=== PATIENT | female | born 1995 | race Caucasian/White ===

== ENCOUNTER 2019-01-02 14:22 | Emergency (ER) | payer MEDICAID ==
[2019-01-02] MEDS ORDERED: ONDANSETRON HCL INJ/PF 4 MG/2 ML SDV IV ONE (14:39)
[2019-01-02] MEDS ORDERED: RINGERS SOLUTION,LACTATED 1,000 ML IV ONE (14:39)
--- NOTE | 2019-01-02 14:42 | ER Document Report ---
ED Medical Screen (RME) - General Chief Complaint: Vomiting Stated Complaint: VOMITING Notes: Patient is otherwise healthy 23-year-old female presents to the emergency department for multiple episodes of vomiting. Patient states initially she thought it was something she ate. States she had multiple episodes of vomiting days ago. States that again today she continues with vomiting. States she is unable to keep anything down, has been sweating a lot, and uncontrollably shaking. Patient is denying any history of diabetes for herself but does state that her mother has diabetes. Patient denies any diarrhea or actual abdominal pain. States intermittent cramping feeling in her belly she states is "from the muscles because I keep vomiting." GENERAL: Alert, pale and diaphoretic ABDOMEN: Soft, non-tender. Non-distended. Bowel sounds present in all 4 quadra nts. I have greeted and performed a rapid initial assessment of this patient. A comprehensive ED assessment and evaluation of the patient, analysis of test results and completion of the medical decision making process will be conducted by additional ED providers. I have specifically instructed the patient or family members with the patient to immediately return to any nursing staff should anything change in the patient's condition or with their chief complaint. This medical record was dictated with voice recognizing software. There may be grammatical, syntax errors that are unintended. TRAVEL OUTSIDE OF THE [place] IN LAST 30 DAYS: No Physical Exam - Vital signs Vitals: Temp Pulse Resp BP Pulse Ox 97.6 F 72 40 H 139/91 H 100 01/02/19 14:25 01/02/19 14:25 01/02/19 14:25 01/02/19 14:25 01/02/19 14:25 Course - Vital Signs Vital signs: Temp Pulse Resp BP Pulse Ox 97.6 F 72 40 H 139/91 H 100 01/02/19 14:25 01/02/19 14:25 01/02/19 14:25 01/02/19 14:25 01/02/19 14:25
--- NOTE | 2019-01-02 15:35 | ER Document Report ---
ED GI/ - General Chief Complaint: Vomiting Stated Complaint: VOMITING Time Seen by Provider: 01/02/19 14:42 Notes: 23-year-old female presents to the emergency department for multiple episodes of vomiting. Patient states initially she thought it was something she ate. States she had multiple episodes of vomiting days ago. States that again today she continues with vomiting. States she is unable to keep anything down, has been sweating a lot, and uncontrollably shaking. Patient is denying any history of diabetes for herself but does state that her mother has diabetes. Patient denies any diarrhea or actual abdominal pain. States intermittent cramping feeling in her belly she states is "from the muscles because I keep vomiting." TRAVEL OUTSIDE OF THE [place] IN LAST 30 DAYS: No Past Medical History - Social History Smoking Status: Current Every Day Smoker Frequency of alcohol use: None Drug Abuse: None Family History: None Patient has suicidal ideation: No Patient has homicidal ideation: No Renal/ Medical History: Denies: Hx Peritoneal Dialysis Review of Systems - Review of Systems Constitutional: denies: Chills, Fever EENT: denies: Throat pain, Throat swelling Respiratory: denies: Cough Gastrointestinal: Diarrhea, Nausea, Vomiting. denies: Abdomen distended, Abdominal pain, Constipation, Black stools, Rectal bleeding Musculoskeletal: denies: Back pain, Muscle pain Neurological/Psychological: denies: Headaches, Numbness -: Yes All other systems reviewed and negative Physical Exam - Vital signs Vitals: Temp Pulse Resp BP Pulse Ox 97.6 F 72 40 H 139/91 H 100 01/02/19 14:25 01/02/19 14:25 01/02/19 14:25 01/02/19 14:25 01/02/19 14:25 - Notes Notes: GENERAL_APPEARANCE: well_nourished, alert, cooperative VITALS: reviewed, see vital signs table. HEAD: no_swelling\\tenderness on the head. EYES: PERRL, EOMI, conjunctiva_clear. NOSE: no_nasal_discharge. MOUTH: Dry tongue and mouth THROAT: no_tonsilar_inflammation, no_airway_obstruction. no_lymphadenopathy NECK: supple, no_neck_tenderness, (-)thyromegaly. BACK: no_back_tenderness. CHEST_WALL: no_chest_tenderness. LUNGS: no_wheezing, no_rales, no_rhonchi, (-)accessory muscle use, good air exchange bilateral. HEART: normal_rate, normal_rhythm, normal_S1, normal_S2, (-)S3, (-)S4, no_murmur, no_rub. ABDOMEN: normal_BS, soft, no_abd_tenderness, (-)guarding, (-)rebound, no_organomegaly, no_abd_masses. EXTREMITIES: good pulses in all_extremities, no_swelling\\tenderness in the extremities, no_edema. SKIN: warm, dry, good_color, no_rash. MENTAL_STATUS: speech_clear, oriented_X_3, normal_affect, responds_appropriately to questions. NEURO: Neg Motor or Sensory Deficits on exam, CN 2-12 intact, DTR 2+ symmetric x 4, No cerbellar signs Course - Re-evaluation Re-evalutation: 01/02/19 15:34 23-year-old female comes in with nausea vomiting and diarrhea started suddenly about 1 PM. She is vomited multiple times watery emesis. She states she had several loose stools. She comes here to the ER and was seen and was given Zofran upfront. Patient now is asking for a lot of something to eat and drink states she is feeling better she denies any abdominal pain. Her abdominal exam is soft and supple is no tenderness McBurney's point no rebound or guarding is noted. Allow the patient to finish her fluids. We will discharge her home with Zofran. Patient complained of a lot of headaches on and off describes as dull and her entire headache is a sugar blurred vision on and off. Denies any extremity numbness tingling weakness. CT scan to better evaluate there is no thunderclap no rapid onset. Not worse headache of life. She thinks are related to hormones. She has had hormone related headaches before 01/02/19 16:49 Patient is feeling better fluids are going slow however they are going. The patient does not have any focal tenderness in her abdomen her abdomen is soft an d supple. She does have leukocytosis but this may all just be due to viral illness and acute phase reactant due to all the vomiting. She is feeling better with the fluids and Zofran. There is no tenderness McBurney's point. The patient is feeling much better we will give her a liter of IV fluids and prescription for Zofran for home there for whatever reason she starts feeling poorly in the next 24 hours again or develops focal pain as we have discussed she will come back and get reevaluated possibly a CT at this time with no focal tenderness or pain and a benign abdominal exam I do not believe she requires emergent imaging. Patient is comfortable with this plan and understands my instructions. - Vital Signs Vital signs: Temp Pulse Resp BP Pulse Ox 97.6 F 72 40 H 139/91 H 100 01/02/19 14:25 01/02/19 14:25 01/02/19 14:25 01/02/19 14:25 01/02/19 14:25 - Laboratory Result Diagrams: 01/02/19 15:06 01/02/19 15:06 Laboratory results interpreted by me: 01/02/19 01/02/19 01/02/19 14:41 15:06 15:06 WBC 22.1 H Abs Neuts (Manual) 16.4 H Abs Monocytes (Manual) 2.0 H BUN 24 H Glucose 113 H POC Glucose 114 H Calcium 10.4 H Total Protein 8.4 H Albumin 5.1 H Urine Protein Urine Ketones Urine Blood Ur Leukocyte Esterase 01/02/19 15:20 WBC Abs Neuts (Manual) Abs Monocytes (Manual) BUN Glucose POC Glucose Calcium Total Protein Albumin Urine Protein 100 H Urine Ketones 20 H Urine Blood SMALL H Ur Leukocyte Esterase TRACE H Discharge - Discharge Clinical Impression: Gastroenteritis Condition: Good Disposition: HOME, SELF-CARE Instructions: Antinausea Medication (H), Gastroenteritis (adult) ([facility]) Prescriptions: Ondansetron [Zofran Odt 4 mg Tablet] 1 - 2 tab PO Q4HP PRN #10 tab.rapdis PRN Reason:
[2019-01-02 15:37] LABS: HEMATOCRIT 42.6 % (36.0-47.0); HEMOGLOBIN 14.3 g/dL (12.0-15.5); MEAN CORPUSCULAR HEMOGLOBIN 30.4 pg (27.0-33.4); MEAN CORPUSCULAR HGB CONC 33.7 g/dL (32.0-36.0); MEAN CORPUSCULAR VOLUME 90 fl (80-97); PLATELET COUNT 296 10^3/uL (150-450); RED BLOOD COUNT 4.72 10^6/uL (3.72-5.28); RED CELL DISTRIBUTION WIDTH 12.6 % (11.5-14.0); WHITE BLOOD COUNT 22.1 10^3/uL (4.0-10.5)
[2019-01-02 15:48] LABS: ALANINE AMINOTRANSFERASE 26 U/L (9-52); ALBUMIN 5.1 g/dL (3.5-5.0); ALKALINE PHOSPHATASE 54 U/L (38-126); ANION GAP 11 (5-19); ASPARTATE AMINO TRANSFERASE 24 U/L (14-36); BILIRUBIN,DIRECT 0.2 mg/dL (0.0-0.4); BILIRUBIN,TOTAL 0.6 mg/dL (0.2-1.3); BLOOD UREA NITROGEN 24 mg/dL (7-20); CALCIUM 10.4 mg/dL (8.4-10.2); CARBON DIOXIDE 26 mmol/L (22-30); CHLORIDE 107 mmol/L (98-107); GLUCOSE 113 mg/dL (75-110); POTASSIUM 4.9 mmol/L (3.6-5.0); SODIUM 143.7 mmol/L (137-145); TOTAL PROTEIN 8.4 g/dL (6.3-8.2)
[2019-01-02 15:54] LABS: APPEARANCE,URINE CLOUDY; BILIRUBIN,URINE NEGATIVE (NEGATIVE); COLOR,URINE DARK YELLOW; GLUCOSE, URINE NEGATIVE (NEGATIVE); KETONES,URINE 20 mg/dL (NEGATIVE); LEUKOCYTE ESTERASE,URINE TRACE (NEGATIVE); NITRITE,URINE NEGATIVE (NEGATIVE); PROTEIN,URINE 100 mg/dL (NEGATIVE); URINE SPECIFIC GRAVITY 1.027; UROBILINOGEN,URINE NEGATIVE mg/dL (<2.0)
[2019-01-02 16:08] LABS: ABSOLUTE LYMPHOCYTES# (MANUAL) 3.3 10^3/uL (0.5-4.7); BASOPHILS % (MANUAL) 0 % (0-2); EOSINOPHILS % (MANUAL) 2 % (0-6); LYMPHOCYTES % (MANUAL) 15 % (13-45); MONOCYTES % (MANUAL) 9 % (3-13); SEGMENTED NEUTROPHILS % (MAN) 74 % (42-78); TOTAL CELLS COUNTED 100
[2019-01-02 16:10] LABS: PLATELET CLUMPS PRESENT; PLATELET COMMENT ADEQUATE; TOXIC GRANULATION SLIGHT
[2019-01-02 17:50] VITALS: BP 116/56
== END 2019-01-02 18:08 | disposition home or self-care (01) ==
LOC: ER 14:22
DX: K52.9 Noninfective gastroenteritis and colitis, unspecified (principal); R11.2 Nausea with vomiting, unspecified; R10.9 Unspecified abdominal pain; F17.200 Nicotine dependence, unspecified, uncomplicated; R61 Generalized hyperhidrosis; R51 Headache; D72.829 Elevated white blood cell count, unspecified
CPT/HCPCS: 99284; 96361; 96374; 36415; 82962; 83690; 85025; 81025; 80053; 81001; J2405; J7120